=== PATIENT | female | born 1980 | race American Indian/Alaskan Native ===

== ENCOUNTER 2017-07-31 14:16 | Outpatient (CLI) | payer OTHER ==
--- NOTE | 2017-07-31 15:36 | Fluoroscopy Report ---
Hysterosalpingogram: Infertility; surgery for prior ectopic. Unsure of side. The patient was placed in a lithotomy position. The speculum was placed. Following Betadine cleansing of the cervix a 5 [place] catheter was successfully placed into the endometrium and secured with air-filled balloon. Injection of water-soluble contrast was made under fluoroscopic observation demonstrating immediate filling of both fallopian tubes. Free spillage is identified on the left. No spillage identified on the right. The uterine canal has a normal contour, size, and no filling defects. Impression: 1. Unremarkable uterus. 2. Patent left fallopian tube. 3. Apparent occlusion of right fallopian tube.
== END 2017-07-31 14:17 | disposition home or self-care (01) ==
LOC: FLUORO 14:16
PROVIDERS: ATTEND Obstetrics & Gynecology
DX: N83.202 Unspecified ovarian cyst, left side (principal); N97.1 Female infertility of tubal origin
CPT/HCPCS: 58340; 74740; Q9967